=== PATIENT | female | born 1990 | race Caucasian/White ===

== ENCOUNTER 2016-07-15 12:03 | Observation (INO) | payer OTHER ==
[~2016-07-15 12:03] MED LIST: Buffered Lidocaine 1% SYR 3ML* 3 ML/SYR SYRINGE INTRADERM ONE; Dexamethasone IV* 4 MG/ML 1 ML (4 MG) IV SLOW PU ONE; Dexamethasone IV* 4 MG/ML 1 ML (4 MG) ONE; Famotidine IV* 10 MG/ML 2 ML (20 mg) IV ONE; Famotidine IV* 10 MG/ML 2 ML (20 mg) ONE; Scopolamine 1.5 mg* PATCH ONE; Scopolamine 1.5 mg* PATCH TRANSDERM ONE; ceFAZolin 2 GM PREMIX(*) 2 GM/50 ML BAG IVPB ONE
[2016-07-15] MEDS ORDERED: Bacitracin IV* 50,000 UNITS INJ ONE (12:41)
[2016-07-15] MEDS ORDERED: Lidocain 1% EPI 1:100,000 * 30 ML MDV ONE (12:41)
[2016-07-15] MEDS ORDERED: Thrombin 5,000 UNITS* 1 APPLIC KIT - topical use - TOPICAL ONE (12:41)
[2016-07-15] MEDS ORDERED: fentaNYL* 50 MCG/ML 2 ML VIAL (100 MCG VIAL) ONE ×3 (13:35→15:32)
[2016-07-15] MEDS ORDERED: Midazolam* 1 MG/ML 5 ML VIAL (5 MG) ONE (13:36)
[2016-07-15] MEDS ORDERED: Lidocaine 2% PF * 5 ML VIAL ONE (13:45)
[2016-07-15] MEDS ORDERED: Rocuronium* 10 MG/ML VIAL ONE (13:45)
[2016-07-15] MEDS ORDERED: Propofol* 10 MG/ML 20 ML BTL IV PUSH ONE (13:45)
[2016-07-15] MEDS ORDERED: Ondansetron INJ* 2 MG/ML VIAL ONE (14:20)
[2016-07-15] MEDS ORDERED: PROCHLORPERAZINE INJ 5 MG/ML 2 ML VIAL IV PRN (14:25)
[2016-07-15] MEDS ORDERED: oxyCODONE/Acetamin 5/325 MG* TAB PO PRN (14:25)
[2016-07-15] MEDS ORDERED: Bacitracin OINTMENT* 1 TUBE ONE (14:55)
[2016-07-15] MEDS ORDERED: Ondansetron INJ* 2 MG/ML VIAL IV PRN (14:59)
[2016-07-15] MEDS: fentaNYL* 50 MCG/ML 2 ML VIAL (100 MCG VIAL) IV PRN ×4 (15:12→16:06)
[2016-07-15] MEDS ORDERED: HYDROcodone/ACETAMIN 5-325 MG* 1 TAB ONE (15:32)
[2016-07-15] MEDS: HYDROcodone/ACETAMIN 5-325 MG* 1 TAB PO PRN ×3 (15:33→23:26)
--- NOTE | 2016-07-15 15:39 | RAD ---
HISTORY: Lumbar discectomy COMPARISONS: February 19, 2016 VIEWS: 1 , single crosstable lateral portable view of the lumbar spine performed intraoperatively at 1:17 PM FINDINGS: A single portable view of the lumbar spine performed intraoperatively at approximately 1:17 PM demonstrates a metallic probe with the tip opposite of L5-S1, counting from L5 as the last lumbar type vertebral body. IMPRESSION: LIMITED PORTABLE VIEW OF THE SPINE FOR LOCALIZATION DURING SPINAL SURGERY
[2016-07-15] MEDS ORDERED: Morphine INJ* 4 MG/ML 1 ML SYRINGE ONE (17:19)
[2016-07-15] MEDS: Morphine INJ* 4 MG/ML 1 ML SYRINGE IV PRN (21:35)
[2016-07-16] MEDS: Morphine INJ* 4 MG/ML 1 ML SYRINGE IV PRN ×2 (03:09→07:42)
[2016-07-16] MEDS: HYDROcodone/ACETAMIN 5-325 MG* 1 TAB PO PRN (06:05)
[2016-07-16] MEDS ORDERED: Cyclobenzaprine TAB* 10 MG PO PRN (07:45)
--- NOTE | 2016-07-16 07:53 | PN ---
Progress Note - Progress Note SOAP: Subjective: []POD # 1 C/O incisional pain Leg better Objective: []Neuro intact Dressing changed this am Assessment: []Satis post op course Plan: []D/C today D/C instructions given
[2016-07-16 07:56] VITALS: BP 98/53
[2016-07-18] MEDS ORDERED: Scopolomine PATCH Remove* 1 NOTE MISC PATCH OFF ONE (06:00)
--- NOTE | 2016-07-20 22:58 | OP ---
DATE OF OPERATION: 07/15/16 - ROOM #[id number] DATE OF : 89 SURGEON: Vinh Smith MD ANESTHESIOLOGIST: Sammie Reyes MD ANESTHESIA: General. PRE-OP DIAGNOSIS: Herniated nucleus pulposus, L4-5 on the right. POST-OP DIAGNOSIS: Herniated nucleus pulposus, L4-5 on the right. OPERATIVE PROCEDURE: Lumbar diskectomy, L4-5 on the right with microdissection. DESCRIPTION OF PROCEDURE: After satisfactory general anesthesia was obtained, the patient was placed on the operating room table in the prone position with the chest supported on Royal frame and the back slightly flexed. The lumbar region was then clipped, prepped, and draped in a sterile manner for lumbar laminectomy and a skin incision was outlined from L4 to L5. This incision was infiltrated with 1% Xylocaine with epinephrine after which it was extended sharply to the level of the lumbar fascia. The fascia was divided along the spinous processes of L4 and L5 and the para-spinal musculatures stripped away from these posterior elements using the periosteal elevator and monopolar cautery. An intraoperative x-ray was obtained verifying proper interspace localization after which a partial hemilaminectomy was carried out at the L4-5 level by removing the inferior aspect of the L4 lamina and medial aspect of the facet complex as well as the most superior aspect of L5 as preoperative x-rays did suggest at the inferior migration of the herniated disk fragment. This was done with a combination of Midas Ronal drill and Kerrison rongeurs. Ligamentum flavum was removed with Kerrison. At this point in the procedure, operating microscope was brought into the field and the remainder of the procedure was done under microscopic visualization. Utilizing microdissection, epidural venous structures were coagulated and divided. Projecting down into the axillary region in the exposure over the L5 vertebral body was a large extruded disk fragment, which came out in one large piece. The specimen was sent for pathology. The disk space itself was palpated and felt firm and was not entered. At the conclusion of the decompression, the L5 nerve root was noted to be free in its course. After assuring adequate hemostasis, the wound was thoroughly irrigated, after which a piece of Gelfoam was placed over the laminectomy defect. The fascia was then reapproximated with 0 Vicryl suture. The subcutaneous tissue was closed with 3-0 Vicryl sutures and Steri-Strips applied to the skin. The estimated blood loss was less than 50 cc and the final sponge, padding, and needle counts were correct. The patient was taken to the recovery room, extubated, and in stable condition. [id number]/[facility] #: [id number] MTDD
--- NOTE | 2016-08-01 03:17 | DS ---
DISCHARGE SUMMARY: DATE OF ADMISSION: 07/15/16 DATE OF DISCHARGE: 07/16/16 ATTENDING PROVIDER: Dr. Smith (DICTATED BY BREANA FISHMAN) DISCHARGE DIAGNOSIS: Herniated nucleus pulposus, L4-5 on the right. SPECIAL PROCEDURES: Lumbar diskectomy, L4-5 on the right. HOSPITAL COURSE: This 25-year-old female was seen in the office with signs and symptoms lumbar radiculopathy consistent with MRI findings of a herniated disk at L4-5 on the right. She had worsened over the previous several months with conservative treatment and rest. She was admitted at this time for elective surgical intervention. On the day of admission, she was taken to surgery where under general anesthesia, a lumbar diskectomy at L4-L5 on the right operation was carried out. Postoperatively, she was feeling well and the pain was well controlled with oral pain medications. She was ambulating independently. She was eating, drinking, and voiding without difficulty. Preoperative right lower extremity pain and numbness was improving and on the first postoperative day, she was discharged home to the care of her family. DISCHARGE INSTRUCTIONS: Discharge instructions including wound care and activity level were discussed with the patient and provided. She will be seen in the office for followup in approximately 7 to 10 days. DISCHARGE MEDICATIONS: 1. Cyclobenzaprine 10 mg 1 tab by mouth up to twice daily as needed for muscle spasms. 2. [place] 5/325 mg 2 tabs by mouth every 4 hours as needed for pain. BREANA FISHMAN [id number]/[facility] #: [id number] [facility]
== END 2016-07-16 10:10 | disposition home or self-care (01) ==
LOC: OR 12:03 → SSU 17:09
PROVIDERS: ADMIT Neurological Surgery; ATTEND Neurological Surgery
PROC: 01NB0ZZ Release Lumbar Nerve, Open Approach (ICD-10-PCS; 2016-07-15)
PROC: 0SB20ZZ Excision of Lumbar Vertebral Disc, Open Approach (ICD-10-PCS; principal; 2016-07-15 13:15)
DX: M51.16 Intervertebral disc disorders with radiculopathy, lumbar region (principal); I48.91 Unspecified atrial fibrillation
CPT/HCPCS: 72100; 88304; 96374; 96375; A9270-GY; G0378; J0690; J1100; J2250; J2270; J2405; J2704; J3010